=== PATIENT | female | born 1930 | race Caucasian/White ===

== ENCOUNTER → 2017-03-21 | Outpatient (CLI) | payer MEDICARE, BC ==
--- NOTE | 2017-03-21 12:58 | XR ---
EXAMINATION TYPE: XR lumbar spine 2 or 3V DATE OF EXAM: 03/21/2017 CLINICAL HISTORY: Back pain TECHNIQUE: Frontal and lateral images of the lumbar spine were obtained. COMPARISON: MRI of the lumbar spine dated 04/08/2015 FINDINGS: There is redemonstration of grade 1 anterolisthesis of L4 and L5. Multilevel degenerative d isc disease is seen as intervertebral disc space narrowing, endplate sclerosis, and facet arthropathy . There is near complete loss of intervertebral disc space at L2-L3 and at T12-L1. There are 5 lumbar type vertebral bodies identified. No acute fracture seen. Moderate atheromatous ch anges are seen of the abdominal aorta and its branches with probable saccular aortic aneurysm measuri ng 3.2 x 2.8 cm at the level of L3. The overlying soft tissue appears unremarkable. IMPRESSION: 1. No acute fracture is seen in the lumbar spine. 2. Multilevel degenerative disc disease, at least moderate in degree with anterolisthesis of L4 on L5 that is unchanged and likely degenerative in nature. 3. 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
== END | disposition home or self-care (01) ==
LOC: RADXRYALE 11:48
PROVIDERS: ATTEND Family Medicine
DX: M43.16 Spondylolisthesis, lumbar region (principal); M51.36 Other intervertebral disc degeneration, lumbar region
CPT/HCPCS: 72100

== ENCOUNTER → 2017-07-29 | Outpatient (CLI) | payer MEDICARE, BC ==
--- NOTE | 2017-07-29 17:14 | XR ---
EXAMINATION TYPE: XR chest 2V DATE OF EXAM: 07/29/2017 COMPARISON: Chest x-ray June 27, 2016 HISTORY: COPD with shortness of breath TECHNIQUE: Frontal and lateral views of the chest are obtained. FINDINGS: There is chronic emphysematous change without suspicious focal air space opacity, pleural effusion, or pneumothorax seen. There is persistent right basilar linear scarring and/or atelectasis . The cardiac silhouette size is stable and upper limits of normal with atherosclerotic and ectatic a anatoliy. The osseous structures remain demineralized. Spine is straightened on the lateral view. IMPRESSION: Chronic changes without suspicious acute pulmonary process. No significant change from p rior x-ray.
== END | disposition home or self-care (01) ==
LOC: RADXRYALE 16:51
PROVIDERS: ATTEND Family Medicine
DX: J43.9 Emphysema, unspecified (principal)
CPT/HCPCS: 71046; 87086

== ENCOUNTER → 2017-12-12 | Outpatient (CLI) | payer MEDICARE, BC ==
--- NOTE | 2017-12-12 12:43 | US ---
EXAMINATION TYPE: US venous doppler duplex LE LT DATE OF EXAM: 12/12/2017 12:32 PM COMPARISON: NONE CLINICAL HISTORY: [id number] Edema,[id number] PAIN LEFT LEG. SIDE PERFORMED: Left TECHNIQUE: The lower extremity deep venous system is examined utilizing real time linear array sonog ziggy with graded compression, doppler sonography and color-flow sonography. VESSELS IMAGED: Common Femoral Vein Deep Femoral Vein Greater Saphenous Vein * Femoral Vein Popliteal Vein Small Saphenous Vein * Proximal Calf Veins (* superficial vessels) Grayscale, color doppler, spectral doppler imaging performed of the deep veins of the left lower extr emity. There is normal flow, compressibility, vascular waveforms. Left Leg: Negative for DVT. Edema channels are noted in anterior skin line at ankle at patient's swe lling. IMPRESSION: No sonographic evidence of deep venous thrombosis within the left lower extremity. Subcu taneous edema is noted in the patient's stated area of swelling.
== END | disposition home or self-care (01) ==
LOC: RADUSWWP 12:07
PROVIDERS: ATTEND Family Medicine
DX: R60.0 Localized edema (principal); M79.605 Pain in left leg